=== PATIENT | female | born 1970 | race Two or more races ===

== ENCOUNTER 2025-10-15 15:52 | Emergency (ER) | payer OTHER, SELFPAY ==
[2025-10-15 16:05] VITALS: BP 111/75; PULSE 111; RESP 18; TEMP 36.6; O2SAT 96; BMI 27.6
--- NOTE | 2025-10-15 16:23 | EDNOTE_ITS ---
ED General RME/HPI General Chief complaint: GI Bleed Stated complaint: BLOOD IN STOOL; ABD PAIN Time Seen by Provider: 10/15/25 15:57 Arrival date/time: 10/15/25 15:52 CC: Epigastric pain with nausea and bloody diarrhea HPI ongoing for the past 24 hours had a previous episode 2 to 3 days ago that spontaneously resolved no prior history of similar events. Patient denies fever chest pain back pain painful urination bloody urination cough. Patient is noncompliant with her hypertensive medications. She is awake alert oriented in moderate discomfort but not in any acute distress localized pain is an 8 on a 10 scale. Related Data Previous Rx's ?Medication ?Instructions ?Recorded ibuprofen 800 mg tablet 800 mg PO TID PRN pain #30 t abs 11/30/18 ondansetron HCl 4 mg tablet 4 mg PO QID PRN nausea and 11/30/18 (Zofran) vomiting #14 tabs pantoprazole 20 mg tablet,delayed 20 mg PO QDAY #30 ta bs 10/15/25 release Allergies Allergy/AdvReac Type Severity Reaction Status Date / Time No Known Allergies Allergy Verified 10/15/25 15:54 Review of Systems Review of Systems Narrative Review of Systems: GEN: No fever, no chills, no weight loss EYES: No discharge, no visual changes, no pain HEENT: No ear pain, no congestion, no sore throat PULM: No shortness of breath, no cough, no congestion CV: No chest pain, no dyspnea on exertion, no palpitations GI: No nausea, no vomiting, no diarrhea, + pain, no constipation : No frequency, no urgency, no dysuria MUSC/SKEL: No joint pain, no back pain SKIN: No rash PSYCH: No hallucinations, no depression HEME/LYMPH: No easy bleeding or bruising tendencies NEURO: No weakness, no headache Past Medical History Past Medical History CARDIAC: Negative Congestive Heart Failure RESPIRATORY: Negative Chronic Obstructive Pulmonary Disease (COPD) GENITOURINARY: Negative Renal Disease ENDOCRINE: Negative Diabetes Mellitus Type 1 or Diabetes Mellitus Type 2 Social History SMOKING STATUS: Current every day smoker ED Exam Narrative Physical exam: [General: In moderate discomfort writhing on the bed. But not in any acute distress Head normocephalic HEENT: Within acceptable limits Neck is supple nontender Chest equal chest rise nontender to palpation Respiratory: Clear to auscultation no wheezes crackles or rubs CV: Rate rhythm is regular no murmurs rubs or clicks Abdomen: Epigastric tenderness with palpation reflexive guarding but no rebound tenderness. No right or left lower quadrant tenderness. Back: No CVA tenderness no spinous process tenderness from cervical spine thor acic and lumbar spine Skin: Intact no petechiae rash induration ulceration or crepitus Extremities: Moving all extremity against resistance cap refill less than 2 seconds neurosensory intact Neuro: Awake alert oriented x3 Glascow coma 15 no focal deficits] Course Course Course Narrative: Reassessment of the patient at 1700, the patient is pain-free and has no nausea. Quality Measures none Orders Category Date Time Status B-Type Natriuretic Peptide Stat Lab 10/15/25 16:26 Completed CBC Stat Lab 10/15/25 16:26 Completed Comprehensive Metabolic Panel Stat Lab 10/15/25 16:26 Completed Drug Screen,Urine Stat Lab 10/15/25 16:59 Completed HCG Qualitative,Urine Stat Lab 10/15/25 16:24 Completed Lipase Stat Lab 10/15/25 16:26 Completed Magnesium Stat Lab 10/15/25 16:26 Completed Partial Thromboplastin Time Stat Lab 10/15/25 16:26 Completed Prothrombin Time with INR Stat Lab 10/15/25 16:26 Completed Urinalysis, C/S if Indicated Stat Lab 10/15/25 16:24 Completed Lidocaine 2% Viscous [Xylocaine 2% Viscous] Med 10/15/25 16:20 Discontinued 15 ml PO X1 ONE Pantoprazole Inj [Protonix Inj] Med 10/15/25 16:20 Discontinued 40 mg IVP X1 ONE Prochlorperazine Inj [Compazine Inj] Med 10/15/25 16:20 Discontinued 10 mg IV X1 ONE Sodium Chloride 0.9% 1000 ml [Ns] 1,000 ml Med 10/15/25 16:21 Discontinued IV 999 mls/hr mg Hyd/Al Hyd/Maye Susp [Maalox Susp] Med 10/15/25 16:20 Discontinued 30 ml PO X1 ONE Vital Signs Vital signs: Vital Signs Temperature 97.9 F 10/15/25 16:05 Pulse Rate 111 H 10/15/25 16:05 Respiratory Rate 18 10/15/25 16:05 Blood Pressure 111/75 10/15/25 16:05 Pulse Oximetry (%) 96 10/15/25 16:05 Oxygen Delivery Method Room Air 10/15/25 16:05 Discharge Plan Plan Patient Disposition: HOME (Self Care) Prescriptions/Referrals Prescriptions/Med Rec: New pantoprazole 20 mg tablet,delayed release (DR/EC) 20 mg PO QDAY Qty: 30 0RF No Action ibuprofen 800 mg tablet 800 mg PO TID PRN (Reason: pain) Qty: 30 0RF ondansetron HCl [Zofran] 4 mg tablet 4 mg PO QID PRN (Reason: nausea and vomiting) Qty: 14 0RF Referrals: Jose Ramos MD [Physician, Family Practice] - In 1 week No Primary/Family,Physician [Primary Care Provider] - In 1 week Problem List Clinical Impression: Acute epigastric pain Patient/Caregiver Discharge Instructions Education Materials: Understanding Methamphetamine ..., ED Diet, [place] (Adult), ED Epigastric Pain (Uncertain Cause) Additional Instructions: Avoid greasy spicy fatty foods, take the medications as prescribed. Stop taking methamphetamines Print Language: [place]ian Stand Alone Forms: [email or web address] Award Info., Patient Portal Info Letter, Work/School Release PA/REGULATORY COMPLIANCE COORDINATOR Supervising Physician PA/REGULATORY COMPLIANCE COORDINATOR Supervising Physician: Edgar Mcelroy ENP [facility] Clinical Information Provided by: patient Medical Records reviewed [facility] Meds/Rx considered, not ordered None Labs/Rad/Tests considered, not ordered None Chronic Illness/Social Conditions Explain: Hypertension with medication noncompliance EKG EKG not done Labs Labs: interpreted by [facility] Lab(s) Interpretation(s): CBC shows mild leukocytosis 16.3 no anemia or thrombocytopenia CMP shows no significant electrolyte imbalances other than a glucose of 131 no renal impairment transaminitis or T. bili elevation Coags within acceptable limits urine is negative for UTI UDS is positive for methamphetamines. Medication Administration(s) none Medication Administration History Discontinued Medications Al Hydrox/Mg Hydrox/Simethicone (Mg Hyd/Al Hyd/Maye (Maalox Reg) Susp 30 Ml Udc) 30 ml PO X1 ONE Stop: 10/15/25 16:21 Last Admin: 10/15/25 16:36 Dose: 30 ml Documented By: BY Sodium Chloride (Ns) 1,000 mls @ 999 mls/hr IV .Q1H1M ONE Stop: 10/15/25 17:21 Last Infusion: 10/15/25 17:31 Dose: Infused Documented By: Admin: 10/15/25 16:30 Dose: 999 mls/hr Documented By: BY Lidocaine HCl (Lidocaine Viscous 2% 15 Ml Udc) 15 ml PO X1 ONE Stop: 10/15/25 16:21 Last Admin: 10/15/25 16:35 Dose: 15 ml Documented By: BY Pantoprazole Sodium (Pantoprazole Inj 40 Mg Vial) 40 mg IVP X1 ONE Stop: 10/15/25 16:21 Last Admin: 10/15/25 16:32 Dose: 40 mg Documented By: BY Prochlorperazine Edisylate (Prochlorperazine Inj 5 Mg/Ml Vial 2 Ml) 10 mg IV X1 ONE; Protocol Stop: 10/15/25 16:21 Last Admin: 10/15/25 16:30 Dose: 10 mg Documented By: BY
[2025-10-15] MEDS: PROCHLORPERAZINE INJ 5 MG/ML VIAL 2 ML 10 MG IV (16:30)
[2025-10-15] MEDS: SODIUM CHLORIDE 0.9% 1000 ML 1,000 ML 999 ML IV (16:30)
[2025-10-15] MEDS: LIDOCAINE VISCOUS 2% 15 ML UDC PO (16:35)
[2025-10-15] MEDS: MG HYD/AL HYD/SIME (Maalox Reg) SUSP 30 ML UDC PO (16:36)
[2025-10-15 16:50] LABS: Basophils # (Auto) 0.1 Thou/mm3 (0.0-0.2); Basophils % (Auto) 0 % (0-2.5); Eosinophils # (Auto) 0.2 Thou/mm3 (0.0-0.5); Eosinophils % (Auto) 1 % (0-10); Hematocrit 43.2 % (36.0-46.0); Hemoglobin 14.9 g/dL (12.0-16.0); Immature Granulocytes Auto 0.06 Thou/mm3 (0.00-0.00); Lymphocytes # (Auto) 2.9 Thou/mm3 (1.0-4.8); Lymphocytes % (Auto) 18 % (10-50); Mean Corpuscular HGB Conc 34.5 g/dl (31.0-37.0); Mean Corpuscular Hemoglobin 31.8 pg (25.0-35.0); Mean Corpuscular Volume 92 fL (80-100); Monocytes # (Auto) 1.0 Thou/mm3 (0.0-0.8); Monocytes % (Auto) 6 % (0-12); Neutrophils # (Auto) 12.2 Thou/mm3 (1.8-7.7); Neutrophils % (Auto) 75 % (37-80); Nucleated Red Blood Cell # 0.00 Thou/mm3 (0.00-0.00); Nucleated Red Blood Cell % 0 /100 WBC (0); Platelet Count 503 Thou/mm3 (140-440); RDW Standard Deviation 44.9 fL (36.4-46.3); Red Blood Count 4.68 Miln/mm3 (4.00-5.20); White Blood Count 16.3 Thou/mm3 (3.6-11.0)
[2025-10-15 16:59] LABS: INR 1.0 (0.9-1.3); Partial Thromboplastin Time 27.3 Seconds (22.0-36.0); Prothrombin Time 10.4 Seconds (9.0-12.2)
[2025-10-15 17:03] LABS: Alanine Aminotransferase 36 U/L (10-49); Albumin, Serum 4.6 gm/dL (3.5-5.0); Albumin/Globulin Ratio 2.1 (1.2-2.2); Alkaline Phosphatase 119 U/L (46-116); Anion Gap 11 (7-16); Aspartate Amino Transferase 21 U/L (0-34); BUN/Creatinine Ratio 12 Ratio (12-20); Bilirubin,Total 0.6 mg/dL (0.3-1.2); Blood Urea Nitrogen 14 mg/dL (9-23); Calcium 9.3 mg/dL (8.3-10.6); Calcium (Corrected) 9.3 mg/dL (8.5-10.1); Carbon Dioxide 24.1 mMol/L (20.0-31.0); Chloride 105 mMol/L (98-107); Creatinine (Component) 1.2 mg/dL (0.6-1.3); Estimated Creatinine Clearance 52.5 mL/min (>60); Globulin 2.2 gm/dL (2.3-3.5); Glucose 131 mg/dL (74-106); Lipase 26 U/L (12-53); Magnesium 1.8 mg/dL (1.6-2.6); Osmolality,Calculated 281 (275-295); Potassium 4.1 mMol/L (3.4-5.1); Sodium 140 mMol/L (136-145); Total Protein 6.8 gm/dL (5.7-8.2); eGFR 53 See Note
[2025-10-15 17:05] LABS: Collection Type, Urine Clean Catch
[2025-10-15 17:24] LABS: Amphetamine/Methamp Scrn,U Positive (Negative); Barbiturate Screen,Urine Negative (Negative); Benzodiazepines Screen,Urine Negative (Negative); Benzoylecgonine Screen, Ur Negative (Negative); Fentanyl Screen,Urine Negative (Negative); Opiate Screen,Urine Negative (Negative); THC Screen,Urine Negative (Negative)
[2025-10-15 17:27] LABS: HCG Qualitative,Urine Negative
[2025-10-15 17:37] LABS: B-Type Natriuretic Peptide < 20 pg/mL (0-100)
[2025-10-15 17:41] LABS: Bacteria,Urine 1+; Bilirubin,Urine Negative (Negative); Blood,Urine Negative (Negative); Clarity,Urine Hazy (Clear/Hazy); Color,Urine Yellow (Lt Yel-Yel); Culture Indicated,Urine Contaminated; Glucose, Urine Negative (Negative); Ketones,Urine Trace (Negative); Leukocyte Esterase,Urine Positive (Negative); Nitrite,Urine Negative (Negative); PH,Urine 6.0 (5.0-7.0); Protein,Urine 1+ (Neg - Trace); RBC,Urine 17 /hpf (0-3); Specific Gravity,Urine 1.023 (1.001-1.035); Squamous Epithelial Cell,Urine 55 /hpf (0-5); Urobilinogen,Urine Negative mg/dL (0.0-1.0); WBC,Urine 6 /hpf (0-5)
[2025-10-15 18:19] VITALS: BP 134/67; PULSE 97; RESP 18; O2SAT 97
[2025-10-15 18:39] VITALS: BP 144/77; PULSE 93; RESP 16; O2SAT 95
== END 2025-10-15 18:46 | disposition home or self-care (01) ==
PROVIDERS: Registered Nurse General Practice; Emergency Provider Emergency Medicine
DX: R10.13 Epigastric pain (principal)
CPT/HCPCS: 36415; 80053; 80307; 81001; 81025; 83690; 83735; 83880; 85025; 85610; 85730; 96361; 96374; 99283; J0780; J2470; J3490; J7030; A9270